=== PATIENT | female | born 1995 | race Two or more races ===

== ENCOUNTER 2021-10-20 05:28 | Inpatient (IN) | payer OTHER ==
[~2021-10-20] VITALS: Ht 152.4 cm; Wt 78.9 kg
[2021-10-20] MEDS ORDERED: PRENATAL TABLE1 EAC1 PO (06:29)
== END 2021-10-22 13:45 | disposition home or self-care (01) | DRG 807 ==
LOC: LDR 05:28 → OB/GYN 05:28
PROVIDERS: ADMIT Specialist; ATTEND Specialist
PROC: 10E0XZZ Delivery of Products of Conception, External Approach (ICD-10-PCS; principal; 2021-10-20)
PROC: 0W8NXZZ Division of Female Perineum, External Approach (ICD-10-PCS; 2021-10-20)
PROC: 4A1HXCZ Monitoring of Products of Conception, Cardiac Rate, External Approach (ICD-10-PCS; 2021-10-20)
DX: O80 Encounter for full-term uncomplicated delivery (principal); Z37.0 Single live birth; Z3A.39 39 weeks gestation of pregnancy; Z20.822 Contact with and (suspected) exposure to COVID-19